=== PATIENT | female | born 1975 | race Caucasian/White ===

== ENCOUNTER 2020-04-10 12:51 | Inpatient (IN) ==
[2020-04-10 14:11] LABS: Urine Appearance Cloudy; Urine Bilirubin Negative (Negative); Urine Blood 1+ (Negative); Urine Color Yellow; Urine Glucose Negative (Negative); Urine Ketones Negative (Negative); Urine Nitrite Negative (Negative); Urine Protein Negative (Negative); Urine Specific Gravity 1.019 (1.010-1.030); Urine Urobilinogen Negative (Negative)
[2020-04-10 14:15] LABS: ABS Eosinophils 0.1 10^3/ul (0-0.6); ABS Lymphocytes 1.9 10^3/ul (1.0-4.8); ABS Monocytes 0.4 10^3/ul (0-0.8); ABS Neutrophils 4.6 10^3/ul (1.5-7.7); Eosinophil % 0.7 %; Hematocrit 40 % (35-47); Hemoglobin 13.6 g/dL (12.0-16.0); Lymphocyte % 27.5 %; Mean Corpuscular HGB Conc 34 g/dL (31-36); Mean Corpuscular Hemoglobin 32 pg (27-31); Mean Corpuscular Volume 95 fL (80-97); Mean Platelet Volume 8.3 fL (7.4-10.4); Platelet Count 257 10^3/uL (150-450); Red Blood Count 4.22 10^6 /uL (3.70-4.87); Red Cell Distribution Width 14 % (10-15); White Blood Count 7.1 10^3/uL (3.5-10.8)
[2020-04-10 14:24] LABS: Urine Bacteria Absent (Absent); Urine Benzodiazepine Screen None Detected (None Detect); Urine Cannabinoids Screen None Detected (None Detect); Urine Opiates Screen None Detected (None Detect); Urine Red Blood Cell Trace(0-2/hpf) (Absent); Urine Squamous Epithelial Cell Present (Absent); Urine White Blood Cell 1+(6-10/hpf) (Absent)
[2020-04-10 14:32] LABS: ALT 11 U/L (7-52); AST 15 U/L (13-39); Albumin 4.4 g/dL (3.2-5.2); Albumin/Globulin Ratio 1.6 (1-3); Alkaline Phosphatase 58 U/L (34-104); Anion Gap 7 mmol/L (2-11); BUN/Creatinine Ratio 30.1 (8-20); Blood Urea Nitrogen 22 mg/dL (6-24); CO2 Carbon Dioxide 25 mmol/L (22-32); Chloride 107 mmol/L (101-111); EGFR African American 104.3 (>60); EGFR Non-African American 86.2 (>60); Globulin 2.7 g/dL (2-4); Glucose 104 mg/dL (70-100); Potassium 3.5 mmol/L (3.5-5.0); Sodium 139 mmol/L (135-145); Total Protein 7.1 g/dL (6.4-8.9)
[2020-04-10 15:03] LABS: Acetaminophen < 15 mcg/mL; Alcohol, S < 10 mg/dL (<10); Salicylate < 2.50 mg/dL (<30)
[2020-04-10 15:13] LABS: TSH Ultra Thyroid Stim Horm 1.06 mcIU/mL (0.34-5.60)
[2020-04-10] MEDS ORDERED: Nicotine GUM 2MG FRUIT FLAVOR PO PRN (23:00)
[2020-04-10] MEDS ORDERED: Al Hydrox/Mg Hydrox/Simet LIQ 30 ML UDC PO PRN (23:17)
[2020-04-11 08:02] LABS: HDL Cholesterol 80.1 mg/dL
[2020-04-11] MEDS ORDERED: Nicotine PATCH 14 MG/24 HR PATCH TRANSDERM SCH (09:00)
[2020-04-11] MEDS: Cholecalciferol (VIT D3) 1,000 unit TAB PO SCH (09:49)
[2020-04-11] MEDS: BIOTIN 1000 MCG PO SCH (09:50)
[2020-04-11] MEDS: Vitamin THERAPEUTIC TAB PO SCH (09:50)
[2020-04-11] MEDS ORDERED: Lactase Enzyme (NF) 3,000 UNIT TAB PO PRN (17:45)
[2020-04-12] MEDS: Venlafaxine XR 75 mg PO SCH (08:04)
[2020-04-12] MEDS: Vitamin THERAPEUTIC TAB PO SCH (08:04)
[2020-04-12] MEDS: Cholecalciferol (VIT D3) 1,000 unit TAB PO SCH (08:04)
[2020-04-12] MEDS: Albuterol HFA INHALER 8 gm MDI INH PRN (08:07)
[2020-04-12] MEDS: BIOTIN 1000 MCG PO SCH (08:13)
[2020-04-12] MEDS ORDERED: Pneumococcal Vac 23-Polyvalent IM ONE (09:00)
[2020-04-12] MEDS: CMC:Lactase Enzyme (NF) 3,000 UNIT TAB PO PRN ×2 (11:59→19:16)
[2020-04-13] MEDS: Venlafaxine XR 75 mg PO SCH (08:52)
[2020-04-13] MEDS: BIOTIN 1000 MCG PO SCH (08:52)
[2020-04-13] MEDS: Vitamin THERAPEUTIC TAB PO SCH (08:52)
[2020-04-13] MEDS: Cholecalciferol (VIT D3) 1,000 unit TAB PO SCH (08:52)
[2020-04-13] MEDS: CMC:Lactase Enzyme (NF) 3,000 UNIT TAB PO PRN ×2 (14:55→19:44)
[2020-04-14] MEDS: Albuterol HFA INHALER 8 gm MDI INH PRN (08:55)
[2020-04-14] MEDS: Vitamin THERAPEUTIC TAB PO SCH (08:59)
[2020-04-14] MEDS: Cholecalciferol (VIT D3) 1,000 unit TAB PO SCH (08:59)
[2020-04-14] MEDS: BIOTIN 1000 MCG PO SCH (09:00)
[2020-04-14] MEDS: Venlafaxine XR 75 mg PO SCH (09:00)
[2020-04-14] MEDS: CMC:Lactase Enzyme (NF) 3,000 UNIT TAB PO PRN ×2 (12:27→19:59)
[2020-04-15] MEDS: Albuterol HFA INHALER 8 gm MDI INH PRN (08:47)
[2020-04-15] MEDS: Cholecalciferol (VIT D3) 1,000 unit TAB PO SCH (08:49)
[2020-04-15] MEDS: Venlafaxine XR 75 mg PO SCH (08:50)
[2020-04-15] MEDS: Vitamin THERAPEUTIC TAB PO SCH (08:50)
[2020-04-15] MEDS: BIOTIN 1000 MCG PO SCH (08:50)
[2020-04-15] MEDS: CMC:Lactase Enzyme (NF) 3,000 UNIT TAB PO PRN ×3 (12:55→20:09)
[2020-04-16] MEDS: Albuterol HFA INHALER 8 gm MDI INH PRN (08:18)
[2020-04-16] MEDS: Cholecalciferol (VIT D3) 1,000 unit TAB PO SCH (08:20)
[2020-04-16] MEDS: Vitamin THERAPEUTIC TAB PO SCH (08:20)
[2020-04-16] MEDS: BIOTIN 1000 MCG PO SCH (08:20)
[2020-04-16] MEDS: Venlafaxine XR 75 mg PO SCH (08:20)
[2020-04-16 10:24] VITALS: BP 115/62
[2020-04-16] MEDS: CMC:Lactase Enzyme (NF) 3,000 UNIT TAB PO PRN (12:02)
== END 2020-04-16 13:00 | disposition home or self-care (01) | DRG 751 ==
LOC: ED 12:51 → BSU 20:50
PROVIDERS: ADMIT Psychiatry & Neurology Psychiatry; ATTEND Psychiatry & Neurology Psychiatry